=== PATIENT | female | born 1990 | race Caucasian/White ===

== ENCOUNTER 2017-07-03 18:12 | Emergency (ER) | payer OTHER ==
[~2017-07-03] VITALS: Ht 142.2 cm; Wt 102.5 kg
[~2017-07-03 18:12] MED LIST: MOTRIN800 MG PO; ZYRTEC10 M3 PO
== END 2017-07-03 21:52 | disposition home or self-care (01) ==
LOC: ER 18:12
DX: J32.8 Other chronic sinusitis (principal); S16.1XXA Strain of muscle, fascia and tendon at neck level, initial encounter; X58.XXXA Exposure to other specified factors, initial encounter; Y93.89 Activity, other specified; Y92.89 Other specified places as the place of occurrence of the external cause; Y99.8 Other external cause status; E66.01 Morbid (severe) obesity due to excess calories

== ENCOUNTER 2017-08-22 14:28 | Emergency (ER) | payer OTHER ==
[~2017-08-22] VITALS: Ht 142.2 cm; Wt 99.8 kg
== END 2017-08-22 18:13 | disposition home or self-care (01) ==
LOC: ER 14:28
DX: M25.442 Effusion, left hand (principal); M25.441 Effusion, right hand; E66.3 Overweight

== ENCOUNTER 2018-04-27 08:28 | Emergency (ER) | payer OTHER ==
[~2018-04-27] VITALS: Ht 142.2 cm; Wt 99.8 kg
== END 2018-04-27 15:54 | disposition home or self-care (01) ==
LOC: ER 08:28
DX: B34.9 Viral infection, unspecified (principal)

== ENCOUNTER 2019-05-18 18:55 | Emergency (ER) | payer OTHER ==
[~2019-05-18] VITALS: Ht 142.2 cm; Wt 102.1 kg
== END 2019-05-18 22:13 | disposition home or self-care (01) ==
LOC: ER 18:55
DX: R10.2 Pelvic and perineal pain (principal)

== ENCOUNTER 2023-03-28 15:25 | Emergency (ER) | payer OTHER ==
[~2023-03-28] VITALS: Ht 142.2 cm; Wt 115.7 kg
[2023-03-28 19:21] LABS: URINE APPEARANCE Clear; URINE BILIRRUBIN Negative (NEGATIVE); URINE BLOOD Negative; URINE COLOR Yellow; URINE GLUCOSE Negative (NEGATIVE); URINE LEUKOCYTE Negative; URINE NITRATE Negative; URINE PROTEIN Negative (NEGATIVE); URINE UROBILINOGEN 0.2 E.U./dl
[2023-03-28 19:21] LABS: HEMATOCRIT 39.8 % (36.0-45.00); HEMOGLOBIN 13.5 g/dL (12.0-15.00); MEAN CELL VOLUME 81.6 fL (80.00-100.00); MEAN CORPUSCULAR HEMOGLOBIN 27.7 pg (27.00-32.0); MEAN CORPUSCULAR HGB CONC 33.9 g/dl (32.0-36.0); PLATELET COUNT 321 K/uL (150-450); RED BLOOD COUNT 4.87 M/uL (4.00-6.00); RED CELL DISTRIBUTION WIDTH 13.5 % (11.5-14.5)
[2023-03-28 19:24] LABS: URINE EPITHELIAL CELLS 23.1 uL (0.0-38.8); URINE RBC 2.1 uL (0.0-20.8); URINE WBC 5.4 uL (0.0-23.2)
[2023-03-28] MEDS ORDERED: DICLOFENAC SODI75 MG PO (20:21)
== END 2023-03-28 21:00 | disposition home or self-care (01) ==
LOC: ER 15:25
PROVIDERS: Nurse Practitioner Family
DX: R10.2 Pelvic and perineal pain (principal)